=== PATIENT | female | born 1955 | race Two or more races ===

== ENCOUNTER 2017-11-16 14:52 | Emergency (ER) | payer MEDICARE, OTHER ==
[~2017-11-16] VITALS: Ht 170.2 cm; Wt 50.8 kg
--- NOTE | 2017-11-16 14:52 | NUR ---
BIBRA 79 FROM HOME, PT HAS A LARGE MASS ON THE LEFT SIDE OF THE NECK HX OF CANCER. PT DIDNT UNDERGO ANY TREATMENT. RT WRIST #20 IV ACCESS. [employer] SUPERVISOR
[2017-11-16] MEDS ORDERED: ONDANSETRON HCL/PF 4 MG/2 ML VIAL ONE (15:29)
[2017-11-16] MEDS ORDERED: MORPHINE SULFATE INJ 4 MG/ML DISP.SYRIN ONE (15:30)
[2017-11-16 15:33] LABS: BASOPHILS # (AUTO) 0.2 /CMM (0.0-0.2); BASOPHILS % (AUTO) 2.4 % (0.0-2.0); EOSINOPHILS % (AUTO) 0.2 % (0.0-6.0); HEMATOCRIT 32 % (33-45); HEMOGLOBIN 10.6 g/dL (11.5-14.8); LYMPHOCYTES # (AUTO) 1.1 /CMM (0.8-4.8); LYMPHOCYTES % (AUTO) 10.6 % (20.0-44.0); MEAN CORPUSCULAR HGB CONC 33 g/dl (31.0-36.0); MEAN CORPUSCULAR VOLUME 80 fL (82-100); MONOCYTES # (AUTO) 0.6 /CMM (0.1-1.30); MONOCYTES % (AUTO) 6.4 % (2.0-12.0); NEUTROPHILS # (AUTO) 8.1 /CMM (1.8-8.9); NEUTROPHILS % (AUTO) 80.4 % (43.0-81.0); PLATELET COUNT (AUTO) 536 /CMM (150-450); RDW COEFFICIENT OF VARIATION 14.9 (11.5-15.0); RED BLOOD CELL COUNT(AUTO) 4.02 MIL/uL (4.0-5.2)
[2017-11-16] MEDS: ONDANSETRON HCL/PF 4 MG/2 ML VIAL IVP ONE (15:33)
[2017-11-16] MEDS: MORPHINE SULFATE INJ 2 MG/ML DISP.SYRIN IV ONE (15:34)
[2017-11-16] MEDS: IV NS 0.9% 1,000 ML BAG IV ONE (15:34)
[2017-11-16 15:47] LABS: INR 1.01 (0.85-1.15)
[2017-11-16 15:50] LABS: CHOLESTEROL 164 mg/dL (<200); HDL CHOLESTEROL 39 mg/dL (40-60); LDL 94 mg/dL (0-99); TRIGLYCERIDES 238 mg/dL (30-150)
[2017-11-16 15:52] LABS: TROPONIN I < 0.017 ng/mL (0.00-0.056)
[2017-11-16 15:55] LABS: ALANINE AMINOTRANSFERASE 17 U/L (12-78); ALBUMIN 2.4 g/dL (3.4-5.0); ALKALINE PHOSPHATASE 107 U/L (46-116); ASPARTATE AMINOTRANSFERASE 64 U/L (15-37); BILIRUBIN,DIRECT 0.1 mg/dL (0.0-0.2); BILIRUBIN,TOTAL 0.4 mg/dL (0.2-1.0); CALCIUM, SERUM 9.1 mg/dL (8.5-10.1); CARBON DIOXIDE 26 mmol/L (21-32); CHLORIDE 104 mmol/L (98-107); CREATININE 0.6 mg/dL (0.6-1.3); GLUCOSE 112 mg/dL (74-106); POTASSIUM 3.7 mmol/L (3.5-5.1); SODIUM SERUM 141 mmol/L (136-145); TOTAL PROTEIN, SERUM 7.1 g/dL (6.4-8.2); UREA NITROGEN, BLOOD 17 mg/dL (7-18)
--- NOTE | 2017-11-16 16:26 | NUR ---
WILLIAM received call from ED requesting for SW to see pt's to discuss possible hospice options. Pt. is a 62 year old female with history of cancer. WILLIAM and director of casework services Lluvia along with Dr. Tejeda met with pt. and her bedside. Pt. is non-verbal and bed bound. Pt's Sim is her caregiver at home. Pt. has not had any treatment for her Cancer since her diagnosis six months ago. Pt's has agreed for hospice care and wants to take the pt. home. client service manager Lluvia to refer and initiate pt. to [facility].
--- NOTE | 2017-11-16 16:55 | NUR ---
CALLED TRANSPORT ETA IS 60 MIN[place] TRIP NUMBER IS [id number]
--- NOTE | 2017-11-16 18:00 | NUR ---
IV removed. Catheter intact and site benign. Pressure and 4x4 applied to site. No bleeding noted.
--- NOTE | 2017-11-16 18:00 | NUR ---
Patient discharged to home in stable condition. Written and verbal after care instructions given. Patient verbalizes understanding of instruction.
[2017-11-16 19:22] VITALS: BP 118/77
== END 2017-11-16 19:23 | disposition home or self-care (01) ==
LOC: ER 14:54
DX: C31.9 Malignant neoplasm of accessory sinus, unspecified (principal); C79.9 Secondary malignant neoplasm of unspecified site; D64.9 Anemia, unspecified; G93.40 Encephalopathy, unspecified; Z85.22 Personal history of malignant neoplasm of nasal cavities, middle ear, and accessory sinuses; R06.02 Shortness of breath
CPT/HCPCS: 36415; 71045-TC; 80048-TC; 80061-TC; 80076-TC; 82962-TC; 84484-TC; 85025-TC; 85730-TC; A4606; J2270; J2405; J7030; Z7610